=== PATIENT | female | born 1955 | race Caucasian/White ===

== ENCOUNTER → 2018-10-27 | Outpatient (REF) | payer BC ==
[~2018-10-27] MED LIST: /CELE20CA OR; /ONDA4TA OR; ACET65TA OR; ACET65TA PO; ALLE25CA OR; ALLE25CA PO; ATEN25TA PO; CENTRUM SILVER PO; CIPR500T4 OR; COLA100C2 OR; FLAG500T OR; MILKSUS OR; MIRALEX PO; PERC5TAB8 OR; VICO5TAB PO
[2018-10-31 16:39] LABS: HPV HYBRID CAPTURE II Negative (Negative)
== END ==
LOC: M SFHCWAGY 09:01
PROVIDERS: ATTEND Nurse Practitioner Family
DX: Z12.4 Encounter for screening for malignant neoplasm of cervix (principal); Z11.51 Encounter for screening for human papillomavirus (HPV); N88.8 Other specified noninflammatory disorders of cervix uteri
CPT/HCPCS: 87624; G0123

== ENCOUNTER → 2018-10-27 | Outpatient (CLI) | payer BC ==
--- NOTE | 2018-10-27 11:23 | REPMRS ---
Patient History The patient states she had a clinical breast exam in 10/24 Patient is postmenopausal. Family history of endometrial cancer at age 80 in mother, skin cancer at age 62 in father, unknown cancer at age 57 in sister. Took hormonal contraceptives for 27 years. Digital Woman Screen Mammo: October 27, 2018 - Exam #: [id number] Bilateral CC and MLO view(s) were taken. Technologist: Chiqui Mccarthy, Technologist Prior study comparison: April 13, 2013, bilateral bilat screen digital mammo, performed at [facility] ([facility]). June 18, 2009, bilateral screening mammogram, performed at [facility] ([facility]). FINDINGS: There are scattered fibroglandular densities. There has been no change in the appearance of the mammogram from the prior studies. There is a mild amount of residual fibroglandular tissue which is fairly symmetric. There is no interval development of dominant mass, architectural distortion, or clustered microcalcification suggestive of malignancy. 3-D tomosynthesis shows no additional findings. The patient's Tyrer-[facility]uz[facility] lifetime risk assessment score is 6.2 %. No significant changes when compared with prior studies. Assessment: BI-RADS/ACR category 2 mammogram. Benign Findings. Recommendation Routine screening mammogram in 1 year (for women over age 40). This mammogram was interpreted with the aid of an FDA-approved computer-aided dectection system. A. Negative x-ray reports should not delay biopsy if a dominant or clinically suspicious mass is present. B. Four to eight percent of cancers are not identified by mammography. C. Adenosis and dense breast may obscure an underlying neoplasm. Electronically Signed By: Dennis Scott MD 10/27/18 1121
== END ==
LOC: M WHC 08:29
PROVIDERS: ATTEND Family Medicine
DX: Z12.31 Encounter for screening mammogram for malignant neoplasm of breast (principal)

== ENCOUNTER → 2019-02-19 | Outpatient (REF) | payer BC ==
[~2019-02-19] MED LIST changes: -/CELE20CA OR; -/ONDA4TA OR; +CELE1CAP4 OR; +ONDA-1 OR
[2019-02-19 16:58] LABS: BLOOD UREA NITROGEN 15 MG/DL (7-18); CALCIUM LEVEL 9.1 MG/DL (8.8-10.2); CARBON DIOXIDE LEVEL 29 MEQ/L (21-32); CHLORIDE LEVEL 101 MEQ/L (98-107); CREATININE FOR GFR 0.88 MG/DL (0.55-1.30); GLOMERULAR FILTRATION RATE > 60.0 (>45); GLUCOSE, FASTING 129 MG/DL (70-100); POTASSIUM SERUM 3.8 MEQ/L (3.5-5.1); SODIUM LEVEL 138 MEQ/L (136-145); THYROID STIMULATING HORMONE 0.911 uIU/ML (0.358-3.740)
== END ==
LOC: M SFHCLERA 10:46
PROVIDERS: ATTEND Family Medicine
DX: I10 Essential (primary) hypertension (principal)

== ENCOUNTER 2019-07-05 14:59 | Emergency (ER) | payer BC ==
[~2019-07-05] VITALS: Ht 162.6 cm; Wt 84.0 kg
[2019-07-05] MEDS ORDERED: LISI-538 PO (15:04)
[2019-07-05] MEDS ORDERED: KETOROLAC 30 MG/ML VIAL (J1885) IV ONE (15:30)
[2019-07-05] MEDS ORDERED: NS 1,000 ML IV ONE (15:30)
[2019-07-05] MEDS ORDERED: ONDANSETRON 4MG/2ML VIAL (J2405) IV ONE (15:30)
--- NOTE | 2019-07-05 15:52 | REP ---
Clinical: Abdominal pain and constipation. Technique: Axial noncontrast images from the lung bases to the pubic symphysis with coronal and sagittal re-formations. Findings: Moderate inflammatory changes surrounding diverticulum in the mid sigmoid colon is consistent with acute diverticulitis. No bowel obstruction. No free air to suggest perforation. No ascites or drainable collection/abscess. Small bowel is unremarkable. Right lower quadrant demonstrates normal terminal ileum, cecum and appendix. Liver, spleen, pancreas, bilateral adrenal glands and kidneys are normal. Pelvis demonstrates normal bladder and age-appropriate uterus/adnexa. No adenopathy. Abdominal aorta without aneurysm. Musculoskeletal structures are intact. Impression: 1. Acute sigmoid diverticulitis. No obstruction, perforation, ascites or drainable collection/abscess. Electronically Signed by Serg Bloom MD 07/05/2019 03:43 P
[2019-07-05 16:00] LABS: BASO % 0.3 % (0.0-1.0); EOS # 0.1 10^3/uL (0.0-0.5); EOS % 1.1 % (0.0-3.0); HEMATOCRIT 42.5 % (36.0-47.0); HEMOGLOBIN 14.5 g/dl (12.0-15.5); LYMPH # 0.9 10^3/uL (1.5-5.0); LYMPH % 11.8 % (24.0-44.0); MEAN CORPUSCULAR HEMOGLOBIN 32.4 pg (27.0-33.0); MEAN CORPUSCULAR HGB CONC 34.1 g/dl (32.0-36.5); MEAN CORPUSCULAR VOLUME 94.9 fl (80.0-96.0); MONO # 0.6 10^3/uL (0.0-0.8); MONO % 8.1 % (0.0-5.0); NEUTROPHILS # 5.7 10^3/uL (1.5-8.5); NEUTROPHILS % 78.4 % (36.0-66.0); PLATELET COUNT, AUTOMATED 144 10^3/uL (150-450); RED BLOOD COUNT 4.48 10^6/uL (4.00-5.40); WHITE BLOOD COUNT 7.3 10^3/uL (4.0-10.0)
[2019-07-05 16:32] LABS: ALBUMIN 3.9 GM/DL (3.2-5.2); ALT/SGPT 33 U/L (12-78); BILIRUBIN,TOTAL 0.9 MG/DL (0.2-1.0); BLOOD UREA NITROGEN 10 MG/DL (7-18); CALCIUM LEVEL 9.3 MG/DL (8.8-10.2); CARBON DIOXIDE LEVEL 28 MEQ/L (21-32); CHLORIDE LEVEL 106 MEQ/L (98-107); CREATININE FOR GFR 0.75 MG/DL (0.55-1.30); GLOMERULAR FILTRATION RATE > 60.0 (>45); GLUCOSE, FASTING 101 MG/DL (70-100); LIPASE 101 U/L (73-393); POTASSIUM SERUM 3.8 MEQ/L (3.5-5.1); SODIUM LEVEL 140 MEQ/L (136-145); TOTAL PROTEIN 7.3 GM/DL (6.4-8.2)
[2019-07-05] MEDS ORDERED: FLAG500T PO (16:38)
[2019-07-05] MEDS ORDERED: CIPR-249 PO (16:38)
[2019-07-05 16:45] VITALS: BP 133/89
[2019-07-05] MEDS ORDERED: metroNIDAZOLE (FLAGYL) 500 MG TAB PO ONE (16:45)
[2019-07-05] MEDS ORDERED: CIPROFLOXACIN 500 MG TAB PO ONE (16:45)
== END 2019-07-05 17:02 | disposition home or self-care (01) ==
LOC: M ED 14:59
DX: K57.32 Diverticulitis of large intestine without perforation or abscess without bleeding (principal); Z79.899 Other long term (current) drug therapy
CPT/HCPCS: 74176; 80053; 81001; 83690; 85025; 87086; 96361; 96374; 96375; 99284; J1885; J2405

== ENCOUNTER → 2019-07-13 | Outpatient (REF) | payer BC ==
[~2019-07-13] MED LIST changes: +CIPR-249 PO; +FLAG500T PO; +LISI-538 PO
[2019-07-13 16:46] LABS: BASO % 0.5 % (0.0-1.0); EOS # 0.1 10^3/uL (0.0-0.5); EOS % 2.3 % (0.0-3.0); HEMATOCRIT 41.7 % (36.0-47.0); HEMOGLOBIN 13.9 g/dl (12.0-15.5); LYMPH % 17.8 % (24.0-44.0); MEAN CORPUSCULAR HEMOGLOBIN 32.5 pg (27.0-33.0); MEAN CORPUSCULAR HGB CONC 33.3 g/dl (32.0-36.5); MEAN CORPUSCULAR VOLUME 97.4 fl (80.0-96.0); MONO # 0.4 10^3/uL (0.0-0.8); MONO % 6.2 % (0.0-5.0); NEUTROPHILS # 4.1 10^3/uL (1.5-8.5); NEUTROPHILS % 72.7 % (36.0-66.0); PLATELET COUNT, AUTOMATED 169 10^3/uL (150-450); RED BLOOD COUNT 4.28 10^6/uL (4.00-5.40); WHITE BLOOD COUNT 5.7 10^3/uL (4.0-10.0)
[2019-07-13 16:48] LABS: BLOOD UREA NITROGEN 11 MG/DL (7-18); CALCIUM LEVEL 9.2 MG/DL (8.8-10.2); CARBON DIOXIDE LEVEL 32 MEQ/L (21-32); CHLORIDE LEVEL 104 MEQ/L (98-107); CREATININE FOR GFR 0.85 MG/DL (0.55-1.30); GLOMERULAR FILTRATION RATE > 60.0 (>45); GLUCOSE, FASTING 135 MG/DL (70-100); POTASSIUM SERUM 3.9 MEQ/L (3.5-5.1); SODIUM LEVEL 141 MEQ/L (136-145)
[2019-07-13 16:52] LABS: APPEARANCE, URINE CLEAR (CLEAR); BACTERIA, URINE AUTO NEGATIVE (NEGATIVE); BILIRUBIN, URINE AUTO NEGATIVE (NEGATIVE); BLOOD, URINE BLOOD NEGATIVE (NEGATIVE); COLOR, URINE STRAW (YELLOW); GLUCOSE, URINE (UA) AUTO NEGATIVE (NEGATIVE); KETONE, URINE AUTO NEGATIVE (NEGATIVE); LEUKOCYTE ESTERASE, URINE AUTO TRACE (NEGATIVE); NITRITE, URINE AUTO NEGATIVE (NEGATIVE); PROTEIN, URINE AUTO NEGATIVE (NEGATIVE); RBC, URINE AUTO 0 /HPF (0-3); SPECIFIC GRAVITY URINE AUTO 1.004 (1.002-1.035); SQUAMOUS EPITHELIAL CELL UR AU 0 /HPF (0-6); UROBILINOGEN, URINE AUTO 0.2 mg/dL (0.0-2.0); WBC, URINE AUTO 2 /HPF (0-3)
== END ==
LOC: M SFHCLERA 11:51
PROVIDERS: ATTEND Family Medicine
DX: K57.92 Diverticulitis of intestine, part unspecified, without perforation or abscess without bleeding (principal)

== ENCOUNTER → 2021-08-25 | Outpatient (CLI) | payer BC, MEDICARE ==
[~2021-08-25] MED LIST changes: -LISI-538 PO; +LISI20TA33 PO
--- NOTE | 2021-08-25 10:26 | REPMRS ---
Patient History The patient states she has not had a clinical breast exam in over a year. Patient is postmenopausal and has history of skin cancer at age 64. Family history of endometrial cancer at age 80 in mother, unknown cancer at age 62 in father, unknown cancer at age 57 in sister. Took hormonal contraceptives for 27 years. Tomosynthesis is performed. Volpara breast density is b. [facility] lifetime risk of breast cancer 5.4%. Patient states no breast complaints today. Patient has signed MRS History Sheet. Digital Woman Screen Mammo: August 25, 2021 - Exam #: [id number] Bilateral CC and MLO view(s) were taken. Technologist: Chiqui Mccarthy, Technologist Prior study comparison: October 27, 2018, bilateral digital woman screen mammo performed at [facility]. April 13, 2013, bilateral bilat screen digital mammo, performed at [facility] ([facility]). FINDINGS: There are scattered fibroglandular densities. There has been no change in the appearance of the mammogram from the prior studies. There is a mild amount of residual fibroglandular tissue which is fairly symmetric. There is no interval development of dominant mass, architectural distortion, or clustered microcalcification suggestive of malignancy. Assessment: BI-RADS/ACR category 1 mammogram. Negative Mammogram. Recommendation Routine screening mammogram in 1 year (for women over age 40). This mammogram was interpreted with the aid of an FDA-approved computer-aided dectection system. Electronically Signed By: Az Padron MD 08/25/21 [id number]
== END ==
LOC: M WHC 07:48
PROVIDERS: ATTEND Nurse Practitioner Women's Health
DX: Z12.31 Encounter for screening mammogram for malignant neoplasm of breast (principal)

== ENCOUNTER → 2021-08-25 | Outpatient (CLI) | payer BC, MEDICARE ==
[2021-08-25 11:23] LABS: HEMOGLOBIN A1c 5.2 %
[2021-08-25 11:47] LABS: BLOOD UREA NITROGEN 12 MG/DL (7-18); CALCIUM LEVEL 9.6 MG/DL (8.8-10.2); CARBON DIOXIDE LEVEL 31 MEQ/L (21-32); CHLORIDE LEVEL 106 MEQ/L (98-107); CHOLESTEROL LEVEL 167 MG/DL (<200); CHOLESTEROL RISK RATIO 2.929 (<5); CREATININE FOR GFR 0.76 MG/DL (0.55-1.30); GLOMERULAR FILTRATION RATE > 60.0 (>45); GLUCOSE, FASTING 92 MG/DL (70-100); HDL CHOLESTEROL 57 MG/DL (>40); LDL CHOLESTEROL 91 MG/DL (<100); NON-HDL-C 110 MG/DL; POTASSIUM SERUM 4.7 MEQ/L (3.5-5.1); SODIUM LEVEL 141 MEQ/L (136-145); TRIGLYCERIDES LEVEL 95 MG/DL (<150)
== END ==
LOC: M PLALAB 08:57
PROVIDERS: ATTEND Family Medicine
DX: Z12.4 Encounter for screening for malignant neoplasm of cervix (principal); Z12.11 Encounter for screening for malignant neoplasm of colon; Z79.899 Other long term (current) drug therapy
CPT/HCPCS: 36415; 80048; 80061; 83036; 87624; G0123

== ENCOUNTER → 2022-03-16 | Outpatient (CLI) | payer MEDICARE | LOC: M WHC 08:57 | PROVIDERS: ATTEND Family Medicine | DX: M81.0 Age-related osteoporosis without current pathological fracture (principal) ==

== ENCOUNTER → 2025-01-17 | Outpatient (REF) | payer MEDICARE ==
[2025-01-19 19:47] LABS: HPV APTIMA Not Detected (Not Detected)
== END ==
LOC: M SFHCWAGY 10:23
PROVIDERS: ATTEND Nurse Practitioner Family
DX: Z11.51 Encounter for screening for human papillomavirus (HPV) (principal)
CPT/HCPCS: 87624; G0123

== ENCOUNTER → 2025-01-17 | Outpatient (CLI) | payer MEDICARE | LOC: M WHC 07:34 | PROVIDERS: ATTEND Nurse Practitioner Family | DX: Z12.31 Encounter for screening mammogram for malignant neoplasm of breast (principal) ==